=== PATIENT | male | born 1995 | race African-American/Black ===

== ENCOUNTER 2025-07-04 20:18 | Outpatient (REF) | payer SELFPAY ==
[2025-07-04 20:20] VITALS: BP 142/78; PULSE 77; RESP 18; TEMP 36.8; O2SAT 100; BMI 31.3
--- NOTE | 2025-07-04 20:37 | EDS_ITS ---
HPI History of Present Illness Chief Complaint: Allergic Reaction Narrative Narrative: Patient is a 29-year-old male presenting to the emergency department for an allergic reaction. Patient has an allergy to peanuts. He states that he ate a piece of cake and did not realize that it had peanuts in it. States shortly after he felt some scratchiness and tingling in the back of his throat. States he is also had nausea with 1 episode of vomiting that has since resolved. He has no abdominal pain, chest pain, shortness of breath, tongue or lip swelling. No difficulty tolerating his secretions. No change to his voice. No medications given prior to arrival. [facility] Medical History no medical history Home Medications ?Medication ?Instructions ?Recorded ?Last Taken ?Type prednisone 20 mg tablet 40 mg (2 x 20 mg) PO DAILY 4 days 07/04/25 Unknown Rx #8 tabs Allergy/AdvReac Type Severity Reaction Status Date / Time peanut (peanuts) Allergy Anaphylaxis Verified 07/04/25 20:19 Penicillins Allergy PT UNSURE Verified 07/04/25 20:19 OF REACTION Surgical History no surgical history Social History Smoking Status: Former smoker ROS ROS ED ROS Narrative See HPI EXAM Physical Exam Narrative Exam Narrative: Vital signs: Reviewed General: Alert and oriented. No acute distress HEENT: Head is normocephalic and atraumatic, sinuses nontender, pupils equal round and reactive. Nares are patent. Oropharynx and throat exams normal. Normal oropharyngeal exam, no tongue, lip or posterior oropharynx swelling or erythema. No angioedema. Neck: Supple without lymphadenopathy nontender Cardiovascular: Regular rate and rhythm, no murmurs. No rubs or gallops. Normal S1 and S2 Respiratory: Clear to auscultation bilaterally. No wheezes, rales, rhonchi Abdominal: Soft and nontender. Normal bowel sounds. No guarding or rebound. Nonsurgical abdomen Extremities: No tenderness. No bruising. Normal range of motion. Normal sensation. Skin: No rash or redness. No urticaria. Neurological: Cranial nerves II through XII are grossly intact. Normal strength and sensation. Normal cerebellar function The rest of the physical exam is unremarkable Const Vital Signs: 07/04/25 20:20 07/04/25 21:34 Temperature 98.3 F 98.2 F Temperature Source Oral Pulse Rate 77 62 Respiratory Rate 18 18 Blood Pressure 142/78 H 139/76 H Blood Pressure Mean 99 97 Pulse Ox 100 100 Oxygen Delivery Method Room Air MDM MDM MDM Narrative Medical decision making narrative: Patient is a 29-year-old male presenting to the emergency department for a allergic reaction. Patient was seen and examined. Vitals are stable. Patient resting in bed comfortably no acute distress. Patient has no nausea, vomiting or abdominal pain on arrival. Has some throat tingling but no evidence of angioedema. Does not meet criteria for anaphylaxis at this time. Will give p.o. Benadryl and steroids. Will observe. Patient reevaluated about an hour after arrival and is reporting improvement in all of his symptoms. He was prescribed 4 days of p.o. steroids and instructed to take Zyrtec/Claritin during the day for symptoms and Benadryl at night. He is going back to the [facility] and they have access to these medications as long as I prescribe the steroids and recommend Zyrtec and Benadryl for symptom c ontrol. They do have access to EpiPen's. All questions were answered. Patient discharged from the Emergency Department. I do not feel that the patient's evaluation reveals any acute reason for admission at this time. I instructed them to either follow-up with their primary care physician or promptly return to the Emergency Department for reevaluation should symptoms worsen or new symptoms develop. I explained what symptoms would indicate the need to return to the emergency department. Shared decision making was used. The patient voiced understanding of the treatment plan and is agreeable with it. Clinical impression Allergic reaction History & Record Review Discussion w/independent historian: Patient Discharge Plan Admission Attending Provider: Adrienne Gamboa Primary Care Provider: Care Physician,No Primary Instructions Patient Instructions: ED General Allergic Reactions Additional Instructions / Restrictions: Take the steroid daily for the next 4 days. You can take Claritin or Zyrtec as prescribed over the next few days during the day. At night you can take Benadryl. Your evaluation in the Emergency Department did not reveal any acute reason for admission. However, I want to emphasize that you may be early in the course of a disease process or illness even if it is not present. For this reason you should follow-up within 24 hours for reevaluation with either your primary care physician or if necessary back here in the Emergency Department. You should return to the Emergency Department immediately if your symptoms worsen or new symptoms develop. Discharge Orders/Prescriptions Prescriptions: New prednisone 20 mg tablet 40 mg PO DAILY 4 Days Qty: 8 0RF Referrals / Follow Up: Care Physician,No Primary [Primary Care Provider, Medical] Disposition Disposition (needs filled in before D/C Order can be placed): Home, Self Care
[2025-07-04 21:34] VITALS: BP 139/76; PULSE 62; RESP 18; TEMP 36.8; O2SAT 100
== END 2025-07-04 21:44 | disposition home or self-care (01) ==
LOC: ED 20:18
PROVIDERS: Visit Provider Student in an Organized Health Care Education/Training Program
DX: Z91.010 Allergy to peanuts
CPT/HCPCS: A4216